=== PATIENT | female | born 1965 | race Caucasian/White ===

== ENCOUNTER → 2017-05-05 | Outpatient (CLI) | payer BC ==
--- NOTE | 2017-05-06 07:35 | MAMMOGRAPHY REPORT ---
BILATERAL DIGITAL SCREENING MAMMOGRAM WITH CAD: 05/05/2017 CLINICAL HISTORY: Patient presents for routine screening. S/P bilateral augmentation. TECHNIQUE: Bilateral CC and MLO views of the breasts with and without implant displacement views were obtained. Current study was also evaluated with a Computer Aided Detection (CAD) system. COMPARISON: Comparison is made to exams dated: 11/08/2015 mammogram, 10/15/2012 mammogram, and 04/13/20 11 mammogram. BREAST COMPOSITION: There are scattered areas of fibroglandular density in both breasts. FINDINGS: Bilateral subpectoral silicone implants are in place. No suspicious mass, architectural di stortion or cluster of suspicious microcalcifications is seen. IMPRESSION: ACR BI-RADS CATEGORY 1: NEGATIVE There is no mammographic evidence of malignancy. A 1 year screening mammogram is recommended. The pa tient will receive written notification of the results. Approximately 10% of breast cancers are not detected with mammography. A negative mammographic report should not delay biopsy if a clinically suggestive mass is present. Sloane Webb M.D. ay/:05/05/2017 16:16:51 Set Up Mold Technician: Douglas Arcos M, [facility] letter sent: Normal 1/2 BI-RADS Code: ACR BI-RADS Category 1: Negative
== END | disposition home or self-care (01) ==
LOC: C.MAMM 10:55
PROVIDERS: ATTEND Obstetrics & Gynecology
DX: Z12.31 Encounter for screening mammogram for malignant neoplasm of breast (principal); Z98.82 Breast implant status

== ENCOUNTER 2017-06-17 13:57 | Emergency (ER) | payer BC ==
[~2017-06-17] VITALS: Ht 172.7 cm; Wt 76.0 kg
[2017-06-17 14:01] VITALS: TEMP 36.4; Ht 172.7 cm; Wt 76.0 kg
[2017-06-17] MEDS ORDERED: FLUO20CA35 PO (14:37)
[2017-06-17] MEDS ORDERED: LORA-741 PO (14:37)
[2017-06-17 14:59] LABS: BASO % 0.7 %; BASO ABS # 0.06 K/uL (0-0.2); EOS % 0.8 %; EOS ABS # 0.07 K/uL (0-0.5); HEMATOCRIT 43.2 % (37-47); HEMOGLOBIN 14.6 g/dL (12.0-16.0); IG# 0.02 K/uL (0.00-0.02); LYMPH % 28.2 %; LYMPH ABS # 2.41 K/uL (1.2-3.4); MEAN CELL VOLUME 100.5 fL (80-100); MEAN CORPUSCULAR HGB CONC 33.8 g/dl (32-36); MEAN PLATELET VOLUME 9.4 fL (7.4-10.4); MONO % 4.9 %; MONO ABS # 0.42 K/uL (0.11-0.59); NEUT % 65.2 %; NEUT ABS # 5.58 K/uL (1.4-6.5); PLATELET COUNT 294 K/uL (130-400); RED CELL DISTRIBUTION WIDTH CV 13.6 % (11.5-14.5); WHITE BLOOD COUNT 8.56 K/uL (4.8-10.8)
[2017-06-17 15:22] LABS: ALBUMIN 4.3 gm/dl (3.4-5.0); ALT/SGPT 73 U/L (12-78); BLOOD UREA NITROGEN 7 mg/dl (7-18); CALCIUM 9.4 mg/dl (8.5-10.1); CARBON DIOXIDE 26 mmol/L (21-32); CREATININE 0.58 mg/dl (0.60-1.20); GLUCOSE 89 mg/dl (70-99); POTASSIUM 3.7 mmol/L (3.5-5.1); SODIUM 144 mmol/L (136-145)
[2017-06-17 15:33] LABS: ALKALINE PHOSPHATASE 97 U/L (45-117); AST/SGOT 65 U/L (15-37); TOTAL PROTEIN 8.5 gm/dl (6.4-8.2)
[2017-06-17] MEDS ORDERED: NICOTINE 21 MG/24 HR TDSY TD SCH (16:15)
[2017-06-17] MEDS ORDERED: LORAZEPAM 0.5 MG TAB SL STA (18:04)
[2017-06-17 20:19] VITALS: BP 114/76; PULSE 75; O2SAT 98
--- NOTE | 2017-06-17 20:40 | EMERGENCY ROOM VISIT NOTE ---
History Report prepared by Filiberto: Anum Herrmann Under the Supervision of: Dr. Juan M Pryor D.O. 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 Per , the patient was getting ready for work when she suddenly stopped getting ready and said she wanted to . The patient states that she felt like she could not do her job today. The patient states her co-workers have been questioning her. The states that the patient seemed like she was drunk and the patient admits that she drank Rum this morning. The patient states that she drinks about a fifth of a bottle of alcohol every day for at least a year. Per , the patient drinks a couple of shots before work and after work she will drink a bottle of alcohol, unless he hides it from her. The patient has a history of depression and anxiety. Per , the patient is normally bright and coherent. The patient feels like she hates herself and feels like she is a horrible person. The patient states that she wants to . She states that if she didn't have her children, then she would kill herself. The patient notes a history of pancreatitis. When asked if she wants to hurt herself, she states that she does not want to kill herself. 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 Review of Systems See HPI for pertinent positives & negatives. A total of 10 systems reviewed and were otherwise negative. Past Medical & Surgical Medical Problems: (1) Anxiety (2) Depression (3) Pancreatitis Family History No pertinent family history Social History Smoking Status: Current Every Day Smoker Smokeless Tobacco Use: No Alcohol Use: heavy (a fifth of ETOH every day) Marital Status: Housing Status: lives with significant other Occupation Status: employed Current/Historical Medications Scheduled Fluoxetine (Prozac), 60 MG PO QAM Scheduled PRN Lorazepam (Ativan), 0.5 MG PO BID PRN for Anxiety Allergies Coded Allergies: No Known Allergies (Unverified , 06/17/17) Physical Exam Vital Signs Date Time Temp Pulse Resp B/P (MAP) Pulse Ox O2 Delivery O2 Flow Rate FiO2 06/17/17 20:19 75 16 114/76 98 06/17/17 17:05 68 18 100/70 98 Room Air 06/17/17 14:01 36.4 94 16 153/88 96 Room Air Physical Exam GENERAL: Laying in bed, alert, disheveled-appearing, well nourished, no distress , non-toxic. Tearful and crying. EYE EXAM: conjunctiva injected. OROPHARYNX: no exudate, no erythema, lips, buccal mucosa, and tongue normal and mucous membranes are moist NECK: supple, no nuchal rigidity, no adenopathy, non-tender LUNGS: Clear to auscultation. Normal chest wall mechanics HEART: no murmurs, S1 normal and S2 normal ABDOMEN: abdomen soft, non-tender, normo-active bowel sounds, no masses, no rebound or guarding. BACK: Back is symmetrical on inspection and there is no deformity, no midline tenderness, no CVA tenderness. SKIN: no rashes and no bruising UPPER EXTREMITIES: upper extremities are grossly normal. LOWER EXTREMITIES: No pitting edema. NEURO EXAM: Awake, alert, following commands. Appears to be intoxicated. no focal deficits. Cranial nerves II-XII grossly intact, normal speech, no gross weakness of arms, no gross weakness of legs. PSYCH: Denies suicidal thoughts. Medical Decision & Procedures Laboratory Results 06/17/17 14:42 Red Blood Count 4.30, Mean Corpuscular Volume 100.5, Mean Corpuscular Hemoglobin 34.0, Mean Corpuscular Hemoglobin Concent 33.8, Mean Platelet Volume 9.4, Neutrophils (%) (Auto) 65.2, Lymphocytes (%) (Auto) 28.2, Monocytes (%) ( Auto) 4.9, Eosinophils (%) (Auto) 0.8, Basophils (%) (Auto) 0.7, Neutrophils # ( Auto) 5.58, Lymphocytes # (Auto) 2.41, Monocytes # (Auto) 0.42, Eosinophils # ( Auto) 0.07, Basophils # (Auto) 0.06 06/17/17 14:42 Test 06/17/17 00:00 06/17/17 14:42 Urine Color YELLOW Urine Appearance CLEAR (CLEAR) Urine pH 7.0 (4.5-7.5) Urine Specific [place] 1.011 (1.000-1.030) Urine Protein NEG (NEG) Urine Glucose (UA) NEG (NEG) Urine Ketones NEG (NEG) Urine Occult Blood TRACE (NEG) Urine Nitrite NEG (NEG) Urine Bilirubin NEG (NEG) Urine Urobilinogen NEG (NEG) Urine Leukocyte Esterase NEG (NEG) Urine WBC (Auto) 0 /hpf (0-5) Urine RBC (Auto) 0-4 /hpf (0-4) Urine Hyaline Casts (Auto) 0 /lpf (0-5) Urine Epithelial Cells (Auto) 5-10 /lpf (0-5) Urine Bacteria (Auto) NEG (NEG) Urine Test NEG (NEG) Urine Opiates Screen NEG (NEG) Urine Methadone, Qualitative NEG (NEG) Urine Barbiturates NEG (NEG) Urine Phencyclidine (PCP) Level NEG (NEG) Ur Amphetamine/Methamphetamine NEG (NEG) MDMA (Ecstasy) Screen NEG (NEG) Urine Benzodiazepines Screen NEG (NEG) Urine Cocaine Metabolite NEG (NEG) Urine Marijuana (THC) NEG (NEG) White Blood Count 8.56 K/uL (4.8-10.8) Red Blood Count 4.30 M/uL (4.2-5.4) Hemoglobin 14.6 g/dL (12.0-16.0) Hematocrit 43.2 % (37-47) Mean Corpuscular Volume 100.5 fL (80-100) Mean Corpuscular Hemoglobin 34.0 pg (25-34) Mean Corpuscular Hemoglobin Concent 33.8 g/dl (32-36) Platelet Count 294 K/uL (130-400) Mean Platelet Volume 9.4 fL (7.4-10.4) Neutrophils (%) (Auto) 65.2 % Lymphocytes (%) (Auto) 28.2 % Monocytes (%) (Auto) 4.9 % Eosinophils (%) (Auto) 0.8 % Basophils (%) (Auto) 0.7 % Neutrophils # (Auto) 5.58 K/uL (1.4-6.5) Lymphocytes # (Auto) 2.41 K/uL (1.2-3.4) Monocytes # (Auto) 0.42 K/uL (0.11-0.59) Eosinophils # (Auto) 0.07 K/uL (0-0.5) Basophils # (Auto) 0.06 K/uL (0-0.2) RDW Standard Deviation 50.0 fL (36.4-46.3) RDW Coefficient of Variation 13.6 % (11.5-14.5) Immature Granulocyte % (Auto) 0.2 % Immature Granulocyte # (Auto) 0.02 K/uL (0.00-0.02) Anion Gap 10.0 mmol/L (3-11) Est Creatinine Clear Calc Drug Dose 114.4 ml/min Estimated GFR () 122.8 Estimated GFR (Non- 106.0 BUN/Creatinine Ratio 12.0 (10-20) Calcium Level 9.4 mg/dl (8.5-10.1) Total Bilirubin 0.2 mg/dl (0.2-1) Direct Bilirubin < 0.1 mg/dl (0-0.2) Aspartate Amino Transf (AST/SGOT) 65 U/L (15-37) Alanine Aminotransferase (ALT/SGPT) 73 U/L (12-78) Alkaline Phosphatase 97 U/L (45-117) Total Protein 8.5 gm/dl (6.4-8.2) Albumin 4.3 gm/dl (3.4-5.0) Thyroid Stimulating Hormone (TSH) 1.080 uIu/ml (0.300-4.500) Ethyl Alcohol mg/dL 330.5 mg/dl (0-3) Laboratory results per my review. Medications Administered Medications (Trade) Dose Ordered Sig/Chang Route Start Time Stop Time Status Last Admin Dose Admin Nicotine (Nicoderm Cq 21MG Patch) 1 patch NOW TD 06/17/17 16:15 06/17/17 20:33 DC 06/17/17 16:24 1 PATCH Lorazepam (Ativan Tab) 0.5 mg NOW STAT SL 06/17/17 18:04 06/17/17 18:13 DC 06/17/17 18:17 0.5 MG ED Course ED COURSE: Vital signs were reviewed and showed hypertensive. The patients medical record was reviewed The above diagnostic studies were performed and reviewed. ED treatments and interventions as stated above. 1409: The patient was evaluated in room A6. A complete history and physical examination was performed. 1509: I spoke with Kayla Ivey, case management. We discussed the patient's case. 1549: I reassessed the patient at this time. She is resting. 161: Ordered Nicotine 1 patch TD 1715: I reassessed the patient at this time. She is resting. 1803: Ordered Ativan 0.5 SL 1944: I spoke with Katerina Michael, psychiatric case management. We discussed the patient's case. The patient would like to go home. 1947: I reassessed the patient at this time. She is awake, alert, and talking in full sentences. The patient does not appear to be intoxicated. 1999: The patient was evaluated and does not currently meet admission criteria. 2009: Upon reevaluation, I discussed my findings with the patient and she understands and agrees with the treatment plan. Based on the patients age, coexisting illnesses, exam and lab findings the decision to treat as an outpatient was made. The patient remained stable while under my care. The patient appeared well at the time of discharge. Medical Decision Differential diagnosis: Etiologies such as mood disorder, infection, hypoglycemia, electrolyte abnormalities, cardiac sources, intracerebral event, toxicologic, neurologic, as well as others were entertained. Patient is a 51-year-old female who presents to ER brought in by significant other for depression. He notes that she did not want to go to work today and was stating that she would rather . She feels bad because she is hurting people because she is drinking. She is not alcoholic. She drinks a fifth of a liquor per day. 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 Patient denies any homicidal or suicidal ideations. She notes she would not kill herself because of her children. CBC all BMP, LFTs, bilirubin and TSH is unremarkable. UA was negative. was negative. Alcohol was 3:30. She was slightly slurring her words. She rested in the ER for close to 6 hours. On multiple re- evaluations she is walking around the room without slurring her words. She does not appear to be intoxicated. She is able to hold full conversation. She denies any suicidal or homicidal ideations. She notes that she would not kill herself. She is evaluated by my psychiatric care transition mgr. They agree that there is no grounds to hold ER. /sniffing other feels comfortable taking her home. Patient was discharged to follow-up as an outpatient. She is willing to seek alcohol rehabilitation/helping. Discussed with Pt concerning signs and symptoms to watch out for. Pt was instructed to follow up with their PCP and discussed with the patient their option to return to the ED at anytime for persistent or worsening symptoms. The appropriate anticipatory guidance and out-patient management, including indications for return to the emergency department, were explained at length to the patient and understood. Medication Reconcilliation Current Medication List: was personally reviewed by me Blood Pressure Screening Patient's blood pressure: Elevated blood pressure Blood pressure disposition: Elevated BP felt to be situational Impression Primary Impression: Mood disorder Additional Impressions: Alcohol abuse Depression Scribe Attestation The scribe's documentation has been prepared under my direction and personally reviewed by me in its entirety. I confirm that the note above accurately reflects all work, treatment, procedures, and medical decision making performed by me. Departure Information Dispostion Home / Self-Care Referrals Riaz Mendez MD (PCP) Forms HOME CARE DOCUMENTATION FORM, IMPORTANT VISIT INFORMATION Patient Instructions Alcohol Abuse - [facility], Depression Help Tips, ED Depression, My [facility] Additional Instructions Please follow up with your primary care doctor in the next 24 hours. Please make sure you follow up with rehabilitation for your alcohol abuse/addiction. No driving for the next 12 hours as you're still intoxicated and your given beds as well as the ER. Any thoughts of self-harm or harming anyone else please return immediately to the ER. Problem Qualifiers Additional Impressions: Depression Depression Type: unspecified Qualified Codes: F32.9 - Major depressive disorder, single episode, unspecified
== END 2017-06-17 20:20 | disposition home or self-care (01) ==
LOC: C.EDB 13:59 → C.EDA 20:20
DX: F10.10 Alcohol abuse, uncomplicated (principal); F32.9 Major depressive disorder, single episode, unspecified; F17.200 Nicotine dependence, unspecified, uncomplicated

== ENCOUNTER → 2017-10-19 | Outpatient (CLI) | payer BC ==
[~2017-10-19] MED LIST: FLUO20CA35 PO; LORA-741 PO
== END | disposition home or self-care (01) ==
LOC: C.LAB1850 10:55
PROVIDERS: ATTEND Internal Medicine Pulmonary Disease
DX: L63.9 Alopecia areata, unspecified (principal); L50.1 Idiopathic urticaria

== ENCOUNTER 2020-09-01 11:42 | Observation (INO) ==
[2020-09-01] MEDS ORDERED: ALUMINUM/MAGNESIUM SUSP 30 ML UDC PO STA (11:58)
[2020-09-01] MEDS ORDERED: ASPIRIN CHEW 324 MG PO STA (11:58)
[2020-09-01] MEDS ORDERED: THIAMINE HCL 200 MG in SODIUM CHLORIDE 0.9% 50 ML IV STA (12:01)
[2020-09-01 12:10] LABS: Basophils # (auto) 0.03 K/uL (0-0.2); Basophils % (auto) 0.3 %; Eosinophils # (auto) 0.02 K/uL (0-0.5); Eosinophils % (auto) 0.2 %; Hematocrit (blood only) 47.5 % (37-47); Hemoglobin 15.6 g/dL (12.0-16.0); Immature Granulocytes # (auto) 0.02 K/uL (0.00-0.02); Immature Granulocytes % (auto) 0.2 %; Lymphocytes # (auto) 1.52 K/uL (1.2-3.4); Lymphocytes % (auto) 13.6 %; Mean Corpuscular Hemoglobin 32.6 pg (25-34); Mean Corpuscular Hgb Conc 32.8 g/dL (32-36); Mean Corpuscular Volume 99.2 fL (80-100); Mean Platelet Volume 10.1 fL (7.4-10.4); Monocytes # (auto) 0.82 K/uL (0.11-0.59); Monocytes % (auto) 7.4 %; Neutrophils # (auto) 8.73 K/uL (1.4-6.5); Neutrophils % (auto) 78.3 %; Platelet Count 313 K/uL (130-400); RDW Coefficient of Variation 15.1 % (11.5-14.5); RDW Standard Deviation 55.2 fL (36.4-46.3); Red Blood Count 4.79 M/uL (4.2-5.4); White Blood Count 11.14 K/uL (4.8-10.8)
[2020-09-01 12:24] LABS: Partial Thromboplastin Time 25.6 Seconds (21.0-31.0); Prothrombin Time 9.8 Seconds (9.0-12.0)
[2020-09-01 12:28] LABS: Alanine Aminotransferase 57 U/L (12-78); Albumin Level 4.6 gm/dl (3.4-5.0); Aspartate Aminotransferase 62 U/L (15-37); BUN Creatinine Ratio 21.1 (10-20); Blood Urea Nitrogen 19 mg/dl (7-18); Calcium 9.8 mg/dl (8.5-10.1); Carbon Dioxide 24 mmol/L (21-32); Chloride 104 mmol/L (98-107); Creatinine Clr Calc Pharmacy 76.5 ml/min; Est GFR (African American) 82.3; Glucose 118 mg/dl (70-99); Magnesium 1.7 mg/dl (1.8-2.4); Potassium 3.3 mmol/L (3.5-5.1); Sodium 137 mmol/L (136-145)
--- NOTE | 2020-09-01 12:31 | XRay Report ---
XR chest 1V portable CLINICAL HISTORY: weakness COMPARISON STUDY: 05/25/2019 FINDINGS: The cardiac and mediastinal contours are normal. There is no evidence of focal pulmonary co nsolidation. There is no evidence of failure. No pleural effusions are visualized.[ IMPRESSION: No active disease in the chest. ACT 112: Negative or not required by law. Electronically signed by: Duy Melton M.D. 09/01/2020 12:30 PM
[2020-09-01 12:38] LABS: Albumin Globulin Ratio 1.1 (0.9-2); Alkaline Phosphatase 107 U/L (45-117); Bilirubin,Total 0.7 mg/dl (0.2-1); Globulin 4.1 gm/dl (2.5-4.0); Total Protein 8.7 gm/dl (6.4-8.2); Troponin I < 0.015 ng/ml (0-0.045)
--- NOTE | 2020-09-01 12:48 | Emergency Department Note ---
Impression & Plan Chest pain, Atrial fibrillation with rapid ventricular response, Abnormal EKG, Hypomagnesemia ED Provider Note NAME: NEELIMA SULLIVAN AGE: 54 SEX: F : 1965 ARRIVES VIA: Ambulance INFORMANT: Patient, prehospital personnel ED PROVIDER(S): Gerardo Marsh DO CHIEF COMPLAINT: Chest pain HPI: The patient is a 54-year-old female who presented to the emergency department by ambulance for an evaluation of chest pain and palpitations. The patient states that she awoke this morning noticing chest pain and palpitations. She also states that she has been experiencing GERD and reflux over the course the last month. She denies having any lower extremity swelling at this time but did complain of pain in the right calf over the last few weeks. She denies having any fever or cough. She states the pain is been intermittent but this morning she awoke with palpitations and discomfort in her chest which was constant. She went to [facility] and had an EKG which showed rapid atrial fibrillation with significant ST segment abnormalities. 911 was called and the patient was assessed by the prehospital personnel. She was found again to have a very abnormal EKG. An IV was placed and the patient's rhythm broke to a sinus rhythm. She continues to had some discomfort in her chest. She was treated with aspirin prior to arrival. Upon arrival to the emergency department her pain and palpitations were significantly improved. The patient has not had similar symptoms in the past but she does have a history of chronic alcohol use. She is never had problems with withdrawal. ROS: See above HPI for pertinent positives & negatives. A total of 10 systems reviewed and were otherwise negative. PAST MEDICAL HISTORY: See Below PAST SURGICAL HISTORY: See Below FAMILY HISTORY: See Below SOCIAL HISTORY: See Below HOME MEDICATIONS: See Below ALLERGIES: See Below VITALS: See Below PHYSICAL EXAMINATION: GENERAL: The patient is awake and alert. The patient is somewhat anxious appearing. EYES: The conjunctivae are clear. The pupils are round and reactive. EARS, NOSE, MOUTH AND THROAT: The nose is without any evidence of any deformity. Mucous membranes are moist. Tongue is midline. NECK: The neck is nontender and supple. RESPIRATORY: Normal respiratory effort is noted there is no evidence of wheezing rhonchi or rales CARDIOVASCULAR: Regular rate and rhythm noted there no murmurs rubs or gallops normal S1 normal S2. GASTROINTESTINAL: The abdomen is soft. Abdomen is nontender. MUSCULOSKELETAL/EXTREMITIES: There is no evidence of gross deformity full range of motion is noted in the hips and shoulders. SKIN: There is no obvious evidence of any rash. There are no petechiae, pallor or cyanosis noted. NEUROLOGIC: Patient is awake alert and oriented x3 strength is symmetric patellar reflexes are 2+ bilaterally MEDICAL DECISION MAKING: The patient is a 54-year-old female who presented to the emergency department from [facility] for an evaluation of chest pain and palpitations. The patient was found to be in atrial fibrillation with RVR initially. A second EKG showed significant ST segment abnormalities with the RVR. I would suspect underlying ischemia which could be rate related however given the patient's age and comorbidities I would be concerned that she may require further inpatient evaluation such as echocardiogram. I discussed the patient's laboratory and radiographic studies with her. I also discussed her case with the on-call [facility] hospitalist. The patient was treated with IV fluids thiamine and IV magnesium in the emergency department. She was given aspirin prior to arrival. On final reevaluation the patient was pain-free and remains in sinus rhythm. Triage Nursing notes reviewed. Prior medical records reviewed Vital Signs: reviewed and remarkable for tachycardia and hypertension. Differential diagnosis: Cardiac ischemia, aortic dissection, pulmonary embolism, pneumothorax, pneumonia, pericarditis, myocarditis, esophageal rupture, GERD, cholecystitis, pancreatitis, musculoskeletal, as well as other pathologies. ER treatment provided: See below Diagnostics interpreted by me: ECG: EKG was obtained in the emergency department. My interpretation is normal sinus rhythm at 83 bpm. There is no ectopy. There is no acute ST segment abnormalities noted. This was compared to a tracing from May 242018. No significant changes were noted. An EKG which was obtained at [email or web address] was reviewed. My interpretation is atrial fibrillation at [address] segment depressions were noted. LVH was suggested by voltage criteria. An EKG was obtained by the prehospital personnel. My interpretation is atrial fibrillation at 196 bpm. There was no ectopy. Worsening ST segment depression was noted diffusely with ST segment elevation in the high lateral leads. A second prehospital EKG was obtained. This was after IV line placement and after the patient went to a sinus rhythm. My interpretation is sinus rhythm at 82 bpm. There was no ectopy. Resolution of the previously noted ST segment abnormalities was noted. Cardiac Monitoring: An order was placed for continuous cardiac monitoring. The monitor shows a rate of 98 bpm with sinus rhythm. Laboratory studies: As stated above and show below. Imaging studies: See below Consultation(s): [] Past Med/Surg History Medical History Alcohol abuse Alopecia areata Basal cell carcinoma of nose Bipolar disorder Colitis Depression with anxiety Hypercholesteremia Laryngopharyngeal reflux (LPR) Osteoarthritis Pancreatitis (~2011) Post traumatic stress disorder REM sleep behavior disorder Urticaria Surgical History History of augmentation of both breasts History of colonoscopy with polypectomy (~2010) History of esophagogastroduodenoscopy (EGD) (~2010) History of tooth extraction History of wisdom tooth extraction Status post Mohs surgery for basal cell carcinoma Family History Father Prostate cancer Brother Cancer lung Mother Family hx colonic polyps Other No family history of adverse response to anesthesia Social History Smoking Status: Never smoker Cigarettes Per Day: 10 a day; Second Hand Exposure: Yes (parents smoked); Hx Alcohol Use: Yes (was an alcoholic--quit 11/2018) Alcohol type: hard liquor Hx Substance Use: No Preferred Language: Turkish Communication Ability: Effective [employer] Required: No Beliefs That Will Affect Care: None marital status: Single marital status details: Current Living Situation: Alone 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 Feels Safe at Home: Yes Assistive Devices: Contacts and Glasses Allergies Allergies Allergy/AdvReac Type Severity Reaction Status Date / Time gluten Allergy Mild gas, Verified 09/01/20 13:45 bloating milk Allergy Mild gas, Verified 09/01/20 13:45 bloating sucrose Allergy Mild hives Verified 09/01/20 13:45 codeine AdvReac Mild Headache Verified 09/01/20 13:45 Home Meds Home Medications Medication Instructions Recorded Confirmed fluoxetine [Prozac] 60 mg PO QAM 04/11/18 09/01/20 valacyclovir [Valtrex] 500 mg PO DAILY PRN 04/11/18 09/01/20 disulfiram 250 mg tablet 250 mg PO QAM 03/21/19 09/01/20 B-complex with vitamin C 1 tab PO QAM 04/01/19 09/01/20 melatonin 10 mg capsule 10 mg PO HS PRN 04/01/19 09/01/20 omeprazole 20 mg capsule,delayed 40 mg PO BID PRN #1 cap 04/01/19 09/01/20 release bupropion HCl 100 mg PO QAM 04/21/19 09/01/20 pediatric multivitamin no.101 1 tab PO HS 04/21/19 09/01/20 [Kids' Gummy] polyethylene glycol 3350 [Miralax] 17 g PO DAILY PRN 04/21/19 09/01/20 clonazepam 0.5 mg PO HS 09/01/20 09/01/20 topiramate [Topamax] 25 mg PO BID 09/01/20 09/01/20 Results & Data (ED) Vital Signs Vital Signs - 24 hr 09/01/20 11:46 09/01/20 11:50 09/01/20 11:58 Temperature 36.8 C Temperature Source Oral Pulse Rate 86 Pulse Rate [Left] Respiratory Rate 18 Respiratory Effort / Characteristics Respiratory Depth Blood Pressure 146/102 H Blood Pressure [Right Arm] Blood Pressure Mean 116 Blood Pressure Mean [Right Arm] Blood Pressure Position [Right Arm] Pulse Oximetry 97 97 98 Oxygen Delivery Method Room Air Room Air Room Air Sepsis Recent Fever Within 48 Hours No Sepsis New/Unexplained Change in Mental Status No Sepsis Action Taken by Nursing No Action Required 09/01/20 13:09 Temperature Temperature Source Pulse Rate Pulse Rate [Left] 93 H Respiratory Rate 20 Respiratory Effort / Characteristics Non-Labored Spontaneous Respiratory Depth Normal Blood Pressure Blood Pressure [Right Arm] 150/83 H Blood Pressure Mean Blood Pressure Mean [Right Arm] 105 Blood Pressure Position [Right Arm] Lying Pulse Oximetry 100 Oxygen Delivery Method Room Air Sepsis Recent Fever Within 48 Hours Sepsis New/Unexplained Change in Mental Status Sepsis Action Taken by Group Home Medications Current Medication List: was personally reviewed by me Laboratory Data Attestation: I reviewed the patient's lab results. Result diagrams: 09/01/20 12:00 09/01/20 12:00 Lab Results 09/01/20 09/01/20 09/01/20 Range/Units 12:00 12:00 12:00 WBC 11.14 H (4.8-10.8) K/uL RBC 4.79 (4.2-5.4) M/uL Hgb 15.6 (12.0-16.0) g/dL Hct 47.5 H (37-47) % MCV 99.2 (80-100) fL MCH 32.6 (25-34) pg MCHC 32.8 (32-36) g/dL RDW Std Deviation 55.2 H (36.4-46.3) fL RDW Coeff of Yazmin 15.1 H (11.5-14.5) % Plt Count 313 (130-400) K/uL MPV 10.1 (7.4-10.4) fL Immature Gran % (Auto) 0.2 % Neut % (Auto) 78.3 % Lymph % (Auto) 13.6 % [place] % (Auto) 7.4 % Eos % (Auto) 0.2 % Baso % (Auto) 0.3 % Neut # (Auto) 8.73 H (1.4-6.5) K/uL Lymph # (Auto) 1.52 (1.2-3.4) K/uL [place] # (Auto) 0.82 H (0.11-0.59) K/uL Eos # (Auto) 0.02 (0-0.5) K/uL Baso # (Auto) 0.03 (0-0.2) K/uL Immature Gran # (Auto) 0.02 (0.00-0.02) K/uL PT 9.8 (9.0-12.0) Seconds INR 1.0 (0.9-1.1) APTT 25.6 (21.0-31.0) Seconds PTT Ratio 1.0 Sodium 137 (136-145) mmol/L Potassium 3.3 L (3.5-5.1) mmol/L Chloride 104 (98-107) mmol/L Carbon Dioxide 24 (21-32) mmol/L Anion Gap 8.0 (3-11) BUN 19 H (7-18) mg/dl Creatinine 0.91 (0.6-1.2) mg/dl Est Cr Clr Drug Dosing 76.5 ml/min Est GFR ( Amer) 82.3 Est GFR (Non-Af Amer) 71.0 BUN/Creatinine Ratio 21.1 H (10-20) Glucose 118 H (70-99) mg/dl Calcium 9.8 (8.5-10.1) mg/dl Magnesium 1.7 L (1.8-2.4) mg/dl Total Bilirubin 0.7 (0.2-1) mg/dl AST 62 H (15-37) U/L ALT 57 (12-78) U/L Alkaline Phosphatase 107 (45-117) U/L Troponin I < 0.015 (0-0.045) ng/ml Total Protein 8.7 H (6.4-8.2) gm/dl Albumin 4.6 (3.4-5.0) gm/dl Globulin 4.1 H (2.5-4.0) gm/dl Albumin/Globulin Ratio 1.1 (0.9-2) TSH 2.240 (0.300-4.500) uIu/ml Administered Medications Discontinued Medications Al Hydrox/Mg Hydrox/Simethicone (Aluminum/Magnesium Susp 30 Ml Udc) 30 ml PO NOW STA Stop: 09/01/20 11:59 Last Admin: 09/01/20 12:24 Dose: 30 ml Documented by: [id number] Aspirin (Aspirin Chew 324 Mg) 324 mg PO NOW STA Stop: 09/01/20 11:59 Last Admin: 09/01/20 12:30 Dose: Not Given Documented by: [id number] Thiamine HCl 200 mg/ Sodium (Chloride) 52 mls @ 208 mls/hr IV NOW STA Stop: 09/01/20 12:15 Last Infusion: 09/01/20 12:41 Dose: 0 mls/hr Documented by: [id number] Admin: 09/01/20 12:24 Dose: 208 mls/hr Documented by: [id number] Imaging Data Radiologist's Impression: Chest X-Ray 09/01/20 11:58 XR chest 1V portable CLINICAL HISTORY: weakness COMPARISON STUDY: 05/25/2019 FINDINGS: The cardiac and mediastinal contours are normal. There is no evidence of focal pulmonary consolidation. There is no evidence of failure. No pleural effusions are visualized.[ IMPRESSION: No active disease in the chest. ACT 112: Negative or not required by law. Electronically signed by: Duy Melton M.D. 09/01/2020 12:30 PM Venous Doppler Study 09/01/20 12:01 US venous doppler LE RT CLINICAL HISTORY: Right leg pain, left chest pain. COMPARISON STUDY: No previous studies for comparison. FINDINGS: Real-time and color flow Doppler imaging were performed. Flow was seen within the femoral, popliteal and calf veins with no intraluminal thrombus de monstrated. The saphenous vein is patent. IMPRESSION: No evidence of right lower extremity DVT. ACT 112: Negative or not required by law. Electronically signed by: Duy Melton M.D. 09/01/2020 1:05 PM Discharge Plan Visit Data Chief Complaint: Chest Pain Stated Complaint: CHEST PAIN ED Provider: Gerardo Marsh Discharge Problem: Chest pain, Atrial fibrillation with rapid ventricular response, Abnormal EKG, Hypomagnesemia Patient Disposition: Being Evaluated by Hospitalist Condition: Good Forms Stand Alone Forms: [employer] Prescriptions Prescriptions: No Action disulfiram [Antabuse] 250 mg tablet 250 mg PO QAM RF: 0 omeprazole 20 mg capsule,delayed release(DR/EC) 40 mg PO BID PRN (Reason: Acid Reflux) Qty: 1 RF: 0 melatonin 10 mg capsule 10 mg PO HS PRN (Reason: Sleep) RF: 0 B-complex with vitamin C [Super B Complex-Vitamin C] tablet 1 tab PO QAM RF: 0 fluoxetine [Prozac] 40 mg Capsule 60 mg PO QAM RF: 0 valacyclovir [Valtrex] 500 mg Tablet 500 mg PO DAILY PRN (Reason: Cold Sores) RF: 0 bupropion HCl 100 mg Tablet Sustained-Release 12 Hr 100 mg PO QAM RF: 0 polyethylene glycol 3350 [Miralax] 17 gram/dose Powder 17 g PO DAILY PRN (Reason: Constipation) RF: 0 Kids' Gummy Tablet,Chewable 1 tab PO HS RF: 0 topiramate [Topamax] 25 mg Capsule, Sprinkle 25 mg PO BID RF: 0 clonazepam 0.5 mg tablet 0.5 mg PO HS RF: 0 Referrals Referrals: Riaz Mendez [Primary Care Provider] - Discharge Problem: Chest pain Qualifiers: Chest pain type: unspecified Qualified Code(s): R07.9 - Chest pain, unspecified
--- NOTE | 2020-09-01 13:06 | Ultrasound Report ---
US venous doppler LE RT CLINICAL HISTORY: Right leg pain, left chest pain. COMPARISON STUDY: No previous studies for comparison. FINDINGS: Real-time and color flow Doppler imaging were performed. Flow was seen within the femoral, popliteal and calf veins with no intraluminal thrombus demonstrated. The saphenous vein is patent. IMPRESSION: No evidence of right lower extremity DVT. ACT 112: Negative or not required by law. Electronically signed by: Duy Melton M.D. 09/01/2020 1:05 PM
--- NOTE | 2020-09-01 13:30 | Electrocardiogram Report ---
Test Reason : Blood Pressure : / mmHG Vent. Rate : 079 BPM Atrial Rate : 079 BPM P-R Int : 134 ms QRS Dur : 090 ms QT Int : 378 ms P-R-T Axes : -13 -03 -13 degrees QTc Int : 433 ms Normal sinus rhythm Minimal voltage criteria for LVH, may be normal variant Limb lead rersal suspected Borderline ECG When compared with ECG of 24-MAY-2019 15:56, Limb lead reversal now present Otherwise no significant change Reconfirmed by Ranjan Wilhelm ([id number]) on 09/02/2020 1:23:16 PM Referred By: REFERRED SELF Confirmed By:Ranjan Wilhelm
[2020-09-01] MEDS ORDERED: MAGNESIUM SULFATE / D5W 1 GM/100 ML BAG IV STA (13:58)
[2020-09-01 14:10] LABS: Appearance Urine Clear (Clear); Bilirubin Urine Negative (Negative); Blood Urine Negative (Negative); Color Urine Yellow; Glucose Urine UA Negative (Negative); Ketones Urine 1+ (Negative); Leukocyte Esterase Urine Negative (Negative); Nitrite Urine Negative (Negative); Protein Urine Negative (Negative); Specific Gravity Urine 1.017 (1.000-1.030); Urobilinogen Urine Negative (Negative)
--- NOTE | 2020-09-01 14:17 | History & Physical Report ---
Date of Service September 01, 2020 Assessment & Plan (1) Atrial fibrillation with rapid ventricular response: Paroxysmal. Now back in sinus rhythm. Discussed option of discharge from the ER on metoprolol, however observation is reasonable given significant rate related ischemic changes on EKG and may be more inclined to start anticoagulation if she has repeated prolonged episodes overnight. Defer anticoagulation for now given low [id number] score (1) and short duration. Start metoprolol tartrate 25 mg p.o. twice daily TTE Consult cardiology (2) Chest pain: Appears to be rate related given resolution now in normal sinus rhythm Trend troponins to rule out ACS TTE in a.m. (3) Depression with anxiety: Fluoxetine 60 mg p.o. every morning Bupropion 100 mg p.o. every morning (4) Bipolar disorder: Topamax 25 mg p.o. twice daily (5) Alcohol abuse: Monitor for symptoms of withdrawal. Last alcohol yesterday over the course of the day 1 pint of vodka. Lorazepam 0.5 mg p.o. now, then at risk lorazepam dosing depending on [facility] Admission and Anticipated Discharge Date Admission Date: September 01, 2020 History of Present Illness Chief Complaint: Atrial fibrillation with rapid ventricular rate Primary Care Provider: Riaz Mendez Valentin Call is a 54-year-old female who presents to the ER from urgent care due to abnormal EKG, chest pain and palpitations. This morning the patient woke up with substernal chest pain and associated palpitations. Chest pain 8/10 at worst, currently 0/10, no radiation, associated shortness of breath but no diaphoresis. She has never had a similar feeling before although does note worsening reflux over the last month but this is an acid taste that is in the back of her mouth rather than any pain. She went to [facility] and EKG showed atrial fibrillation with rapid ventricular rate and precordial ST depressions. EMS were called and after an IV was placed she converted to normal sinus rhythm. She has been chest pain-free since being in normal sinus rhythm. She denies any claudication (right calf pain worse at rest), presyncope or syncope. Of note today is the burial for her mother who recently . The patient has alcohol use disorder and has been sober for the past year but relapsed recently after the of her mother. Yesterday she drank 1 pint of vodka. No history of alcohol withdrawal seizures. She feels somewhat shaky at the present time but is unsure whether this is due to nicotine craving or withdrawals. Cardiovascular risk factors: Hypertension, 1 pack cigarettes per day. In the ER she has been chest pain-free in normal sinus rhythm. Initial troponin negative. ST depressions have resolved while in normal sinus rhythm. She is referred to medicine for admission and ongoing management of chest pain, A. fib with RVR. Allergies Allergy/AdvReac Type Severity Reaction Status Date / Time gluten Allergy Mild gas, Verified 09/01/20 13:45 bloating milk Allergy Mild gas, Verified 09/01/20 13:45 bloating sucrose Allergy Mild hives Verified 09/01/20 13:45 codeine AdvReac Mild Headache Verified 09/01/20 13:45 Home Medications Medication Instructions Recorded Confirmed Type fluoxetine [Prozac] 60 mg PO QAM 04/11/18 09/01/20 History valacyclovir [Valtrex] 500 mg PO DAILY PRN 04/11/18 09/01/20 History disulfiram 250 mg tablet 250 mg PO QAM 03/21/19 09/01/20 History B-complex with vitamin C 1 tab PO QAM 04/01/19 09/01/20 History melatonin 10 mg capsule 10 mg PO HS PRN 04/01/19 09/01/20 History omeprazole 20 mg capsule,delayed 40 mg PO BID PRN #1 cap 04/01/19 09/01/20 History release bupropion HCl 100 mg PO QAM 04/21/19 09/01/20 History pediatric multivitamin no.101 1 tab PO HS 04/21/19 09/01/20 History [Kids' Gummy] polyethylene glycol 3350 [Miralax] 17 g PO DAILY PRN 04/21/19 09/01/20 History clonazepam 0.5 mg PO HS 09/01/20 09/01/20 History topiramate [Topamax] 25 mg PO BID 09/01/20 09/01/20 History Past Med/Surg History Medical History Alcohol abuse Alopecia areata Basal cell carcinoma of nose Bipolar disorder Colitis Depression with anxiety Hypercholesteremia Laryngopharyngeal reflux (LPR) Osteoarthritis Pancreatitis (~2011) Post traumatic stress disorder REM sleep behavior disorder Urticaria Surgical History History of augmentation of both breasts History of colonoscopy with polypectomy (~2010) History of esophagogastroduodenoscopy (EGD) (~2010) History of tooth extraction History of wisdom tooth extraction Status post Mohs surgery for basal cell carcinoma Family History Father Prostate cancer Brother Cancer lung Mother Family hx colonic polyps Other No family history of adverse response to anesthesia Social History Smoking Status: Current every day smoker Cigarettes Per Day: 10; Second Hand Exposure: No; Do You Dip or Chew Tobacco: No; Tobacco Cessation Education Requested by Patient: No Hx Alcohol Use: Yes Alcohol type: hard liquor Hx Substance Use: No Preferred Language: Maldivian Communication Ability: Effective Army Officer Required: No Beliefs That Will Affect Care: None marital status: Single marital status details: Current Living Situation: Alone 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 Feels Safe at Home: Yes Safety Concerns: Feels Safe At This Time Assistive Devices: Glasses Review of Systems Review of Systems: All systems reviewed & are unremarkable except as noted in HPI & below Physical Exam Constitutional: well developed and well nourished; no acute distress Eyes: + anicteric sclerae; normal pupil size ENMT: external ear and nose normal, oropharynx normal Respiratory: normal respiratory effort, lungs clear to auscultation Cardiovascular: RRR, no murmur, no edema Gastrointestinal (Abdomen): normal bowel sounds, soft, nontender, no hepatosplenomegaly Musculoskeletal: no cyanosis or clubbing, extremities motor strength 5/5 Skin: no rashes, warm and dry Neurologic: moves all extremities and awake; not confused Motor/Sensory: no tremor Psychiatric: A+Ox3, euthymic affect Results & Data Results & Data ([facility]) Vital Signs (Past 12 Hours) Vital Signs Temp Pulse Pulse Resp BP BP Pulse Ox 09/01/20 13:09 93 H 20 150/83 H 100 09/01/20 11:58 98 09/01/20 11:50 36.8 C 86 18 146/102 H 97 09/01/20 11:46 97 Diagnostic Findings XR chest 1V portable IMPRESSION: No active disease in the chest. US venous doppler LE RT IMPRESSION: No evidence of right lower extremity DVT. Medications Administered ER medications given: Aspirin 324 mg p.o. Maalox 30 mL Thiamine 200 mg IV Magnesium sulfate 1 g IV ECG Indication: chest pain Rate (beats per minute): 88 Rhythm: normal sinus Findings: no acute ischemic change Change: the following changes noted (Lead placement changes between EKGs in ER) Additional Comments: Multiple out of hospital and in hospital EKGs reviewed. EKG as above represents initial in the hospital EKG 10:?? AM narrow complex tachycardia with ST depression in inferior leads and nonspecific T wave abnormalities in inferior lateral leads. Consistent with a. fib RVR. 11:27 AM: Narrow complex tachycardia with marked precordial ST depression, rate 150, appears regular Code Status & VTE Plan Code Status Full VTE Prophylaxis Plan VTE Prophylaxis will be ordered: No Reason for no VTE drug order: Treatment not indicated Reason for no VTE mechanical prophylaxis: Treatment not indicated PG Care Time/CCT Total # of Minutes Spent Total Time Spent with Patient: Total time spent is greater than 50% in coordination of care (as documented) at patient's floor/unit and/or counseling patient: Coding Level of Care Code 04426 OBS Care - Level 3 Diagnoses Atrial fibrillation with rapid ventricular response I48.91 Chest pain R07.9 Chest pain type: unspecified Depression with anxiety F41.8 Bipolar disorder F31.9 Alcohol abuse F10.10 (1) Chest pain Chest pain type: unspecified Qualified Code(s): R07.9 - Chest pain, unspecified
[2020-09-01] MEDS ORDERED: METOPROLOL TARTRATE 25 MG TAB PO STA (14:45)
[2020-09-01 15:21] LABS: Influenza A virus by PCR Negative (Neg); Influenza B virus by PCR Negative (Neg); RSV by PCR Negative (Neg); SARS CoV2 RNA(COVID-19) InHosp NEGATIVE (Negative)
[2020-09-01] MEDS ORDERED: LORazepam 0.5 MG TAB PO STA (15:32)
[2020-09-01] MEDS ORDERED: LORazepam 1 MG TAB PO PRN (17:46)
[2020-09-01] MEDS ORDERED: POLYETHYLENE (MIRALAX) 17 GM PACK PO PRN ×2 (17:46)
[2020-09-01] MEDS ORDERED: MELATONIN 3 MG TAB PO PRN (17:46)
[2020-09-01] MEDS ORDERED: ACETAMINOPHEN 325 MG TAB PO PRN (17:46)
[2020-09-01] MEDS ORDERED: PANTOprazole 40 MG TAB PO PRN (17:46)
[2020-09-01] MEDS ORDERED: ONDANSETRON INJ 2 MG/ML 2 ML VIAL IV PRN (17:46)
[2020-09-01] MEDS ORDERED: METOPROLOL TARTRATE 1 MG/ML VIAL IV PRN (17:46)
[2020-09-01] MEDS: TOPIRAMATE 25 MG TAB PO SCH (20:41)
[2020-09-01] MEDS: METOPROLOL TARTRATE 25 MG TAB PO SCH (20:41)
[2020-09-01] MEDS: NICOTINE 7 MG/24 HR TDSY TD SCH (20:41)
[2020-09-01] MEDS ORDERED: POTASSIUM CHLORIDE CRTAB 20 MEQ TABCR PO ONE (21:00)
[2020-09-01] MEDS ORDERED: clonazePAM 0.5 MG TAB PO SCH (21:00)
[2020-09-01] MEDS ORDERED: MULTIVITAMIN CHEWABLE TAB PO SCH (21:00)
[2020-09-02 07:24] LABS: BUN Creatinine Ratio 22.2 (10-20); Blood Urea Nitrogen 17 mg/dl (7-18); Calcium 8.7 mg/dl (8.5-10.1); Carbon Dioxide 27 mmol/L (21-32); Chloride 110 mmol/L (98-107); Creatinine Clr Calc Pharmacy 83.3 ml/min; Est GFR (African American) 100.7; Est GFR (Non-African American) 86.9; Glucose 83 mg/dl (70-99); Potassium 4.4 mmol/L (3.5-5.1); Sodium 139 mmol/L (136-145); Troponin I < 0.015 ng/ml (0-0.045)
[2020-09-02] MEDS: TOPIRAMATE 25 MG TAB PO SCH (08:34)
[2020-09-02] MEDS: METOPROLOL TARTRATE 25 MG TAB PO SCH (08:34)
[2020-09-02] MEDS: NICOTINE 7 MG/24 HR TDSY TD SCH (08:35)
[2020-09-02] MEDS ORDERED: buPROPion SR 100 MG TABCR PO SCH (09:00)
[2020-09-02] MEDS ORDERED: VITAMIN B COMPLEX TAB PO SCH (09:00)
[2020-09-02] MEDS ORDERED: FLUoxetine HCL 20 MG CAP PO SCH (09:00)
[2020-09-02] MEDS ORDERED: B COMPLEX WITH VITAMIN C PO SCH (09:00)
[2020-09-02] MEDS ORDERED: ASCORBIC ACID 500 MG TAB PO SCH (09:00)
--- NOTE | 2020-09-02 11:15 | XCELERA ---
[id number]
--- NOTE | 2020-09-02 11:29 | Cardiology Consultation ---
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 As noted, original ECG not available on [facility], but images appear to show atrial fibrillation with rapid ventricular response (less likely SVT). Fortunately, the patient's dysrhythmia broke spontaneously and has not recurred on low-dose beta-go. Her electrolytes have normalized and she has had no further chest pain. We discussed at some length the pathophysiology, prognosis, and management of paroxysmal atrial fibrillation. Since she has a remediable etiology which can be corrected through alcohol abstinence (which she was willing to pursue), the likelihood of recurrence should be fairly low. Nonetheless, given the extreme high rate and concurrent chest discomfort, recommend discharging on her current low-dose beta-go. We discussed anticoagulation, with a [id number] score of 1 and low likelihood of recurrence did not immediately initiate anticoagulation, however will give her samples of apixaban as outpatient to have available should she have any recurrence of palpitations lasting greater than 48 hours. Instructed her on Instant Heart Rate mary use for monitoring her rhythm. Unclear whether her chest discomfort and ECG changes were in fact anginal due to extreme demand of high heart rate (which does not necessarily imply significant coronary disease), but no evidence of acute coronary syndrome (troponins negative and subsequent ECGs benign). She does not have major risk factors for occlusive disease, but prudent to proceed with stress study to further evaluate this. Both stress study and outpatient follow-up scheduled for September 02 at 12:30 PM. History of Present Illness Reason for Consultation: Narrow complex tachycardia Requesting Physician: Abiel Cheung MD Attending Physician: Thom Everett DO History of Present Illness 54-year-old generally healthy woman with no history of dysrhythmia admitted 09/01/2020 with palpitations and chest pain, ECG showed probable atrial fibrillation with rapid ventricular response (196 bpm). She has a vague cardiac history of being evaluated by outpatient dietitian in [place] 10 or 15 years ago for some heart "thickening" without specific findings, current echocardiogram does not show hypertrophic cardiomyopathy, LVH, or other obvious pathology. She does not have a history of prior dysrhythmia or of hypertension. Her mother recently and the patient began drinking large amounts of alcohol (after being abstinent), upon admission she was hypokalemic and hypomagnesemic. Her chest discomfort was somewhat sharp but rather severe and concurrent with her palpitations, it resolved promptly when her dysrhythmia spontaneously broke in the emergency department. Overnight, she has had no recurrent chest pain or dysrhythmia, she had no complaints this morning. Allergies Allergy/AdvReac Type Severity Reaction Status Date / Time gluten Allergy Mild gas, Verified 09/01/20 13:45 bloating milk Allergy Mild gas, Verified 09/01/20 13:45 bloating sucrose Allergy Mild hives Verified 09/01/20 13:45 codeine AdvReac Mild Headache Verified 09/01/20 13:45 Home Medications Medication Instructions Recorded Confirmed Type fluoxetine [Prozac] 60 mg PO QAM 04/11/18 09/01/20 History valacyclovir [Valtrex] 500 mg PO DAILY PRN 04/11/18 09/01/20 History disulfiram 250 mg tablet 250 mg PO QAM 03/21/19 09/01/20 History B-complex with vitamin C 1 tab PO QAM 04/01/19 09/01/20 History melatonin 10 mg capsule 10 mg PO HS PRN 04/01/19 09/01/20 History omeprazole 20 mg capsule,delayed 40 mg PO BID PRN #1 cap 04/01/19 09/01/20 Hi story release bupropion HCl 100 mg PO QAM 04/21/19 09/01/20 History pediatric multivitamin no.101 1 tab PO HS 04/21/19 09/01/20 History [Kids' Gummy] polyethylene glycol 3350 [Miralax] 17 g PO DAILY PRN 04/21/19 09/01/20 History clonazepam 0.5 mg PO HS 09/01/20 09/01/20 History topiramate [Topamax] 25 mg PO BID 09/01/20 09/01/20 History Patient History Medical History Alcohol abuse Alopecia areata Basal cell carcinoma of nose Bipolar disorder Colitis Depression with anxiety Hypercholesteremia Laryngopharyngeal reflux (LPR) Osteoarthritis Pancreatitis (~2011) Post traumatic stress disorder REM sleep behavior disorder Urticaria Surgical History History of augmentation of both breasts History of colonoscopy with polypectomy (~2010) History of esophagogastroduodenoscopy (EGD) (~2010) History of tooth extraction History of wisdom tooth extraction Status post Mohs surgery for basal cell carcinoma Family History Prostate cancer Father No family history of adverse response to anesthesia Family hx colonic polyps Mother Cancer Brother lung Social History Smoking Status: Current every day smoker Cigarettes Per Day: 10; Second Hand Exposure: No; Do You Dip or Chew Tobacco: No; Tobacco Cessation Education Requested by Patient: No Hx Alcohol Use: Yes Alcohol type: hard liquor Hx Substance Use: No Preferred Language: Kinyarwanda Communication Ability: Effective First Front Ventilator Required: No Beliefs That Will Affect Care: None marital status: Single marital status details: Current Living Situation: Alone 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 Afebrile. Normotensive. Pulse 72 bpm and regular without ectopy. Skin: no ecchymoses or generalized lesions. HEENT: unremarkable. Neck: no JVD or carotid bruits. Lungs: clear. Cardiac: regular rhythm, no murmur or gallop. Abdomen: benign. Extremities: no edema, peripheral pulses brisk. Neurologic: normal affect and conversation, nonfocal. Results & Data ([facility]) Vital Signs (Past 12 Hours) Vital Signs Temp Pulse Pulse Resp BP Pulse Ox 09/02/20 08:19 98.1 F 76 18 131/84 99 09/02/20 07:34 71 09/02/20 04:00 98.1 F 65 16 134/87 98 09/02/20 00:00 73 Laboratory Results WBC 11.14, normal hemoglobin and platelet count. Potassium 3.3, magnesium 1.7, creatinine 0.91 yesterday, repeat labs today with normal electrolytes and creatinine of 0.77. Troponin negative x3. Diagnostic Findings Initial ECGs were unavailable in [employer] [facility], however I was able to review a copy sent to my iPhone. When ECG showed narrow complex rapid ventricular rate (196 bpm) which appeared slightly irregular, most likely atrial fibrillation with rapid ventricular response. A second ECG also showed narrow complex rapid ventricular rate (171 bpm) but appeared fairly regular. Both of these ECGs had marked ST depression. Subsequent ECG showed sinus rhythm at 79 bpm with borderline voltage criteria for LVH, otherwise unremarkable (ST segments were normal). Another ECG yesterday afternoon showed sinus rhythm at 83 bpm and was completely unremarkable. Chest x-ray on admission was normal. Venous Doppler showed no evidence of right lower extremity DVT. PG Care Time/CCT Total # of Minutes Spent Total Time Spent with Patient: Total time spent is greater than 50% in coordination of care (as documented) at patient's floor/unit and/or counseling patient: Coding Level of Care Code 19468 Inpt Consult Level 4 Diagnoses Atrial fibrillation with rapid ventricular response I48.91 Hypomagnesemia E83.42 Hypokalemia E87.6 Alcohol abuse F10.10
--- NOTE | 2020-09-02 12:59 | Discharge Summary ---
Date of Service September 02, 2020 Admission HPI Per Admitting Provider Valentin Call is a 54-year-old female who presents to the ER from urgent care due to abnormal EKG, chest pain and palpitations. This morning the patient woke up with substernal chest pain and associated palpitations. Chest pain 8/10 at worst, currently 0/10, no radiation, associated shortness of breath but no diaphoresis. She has never had a similar feeling before although does note worsening reflux over the last month but this is an acid taste that is in the back of her mouth rather than any pain. She went to [facility] and EKG showed atrial fibrillation with rapid ventricular rate and precordial ST depressions. EMS were called and after an IV was placed she converted to normal sinus rhythm. She has been chest pain-free since being in normal sinus rhythm. She denies any claudication (right calf pain worse at rest), presyncope or syncope. Of note today is the burial for her mother who recently . The patient has alcohol use disorder and has been sober for the past year but relapsed recently after the of her mother. Yesterday she drank 1 pint of vodka. No history of alcohol withdrawal seizures. She feels somewhat shaky at the present time but is unsure whether this is due to nicotine craving or withdrawals. Cardiovascular risk factors: Hypertension, 1 pack cigarettes per day. In the ER she has been chest pain-free in normal sinus rhythm. Initial troponin negative. ST depressions have resolved while in normal sinus rhythm. She is referred to medicine for admission and ongoing management of chest pain, A. fib with RVR. Admission Exam Per Admitting Provider Constitutional: well developed and well nourished; no acute distress Eyes: + anicteric sclerae; normal pupil size ENMT: external ear and nose normal, oropharynx normal Respiratory: normal respiratory effort, lungs clear to auscultation Cardiovascular: RRR, no murmur, no edema Gastrointestinal (Abdomen): normal bowel sounds, soft, nontender, no hepatosplenomegaly Musculoskeletal: no cyanosis or clubbing, extremities motor strength 5/5 Skin: no rashes, warm and dry Neurologic: moves all extremities and awake; not confused Motor/Sensory: no tremor Psychiatric: A+Ox3, euthymic affect Principal Diagnosis Atrial fibrillation with RVR Ethanol abuse Discharge Exam GENERAL : No acute distress EYES: No icterus, gaze conjugate NOSE: No evidence of epistaxis MOUTH: No lesions or candidiasis NECK: Supple LUNGS: CTA B/L, no wheezes, rales or rhonchi HEART: Regular, rate controlled ABDOMEN: Soft, NT, ND, BS Present EXTREMITIES: No LE edema, pedal pulses intact NEURO: A&OX3 Discharge Data Allergies Allergy/AdvReac Type Severity Reaction Status Date / Time gluten Allergy Mild gas, Verified 09/05/20 10:20 bloating milk Allergy Mild gas, Verified 09/05/20 10:20 bloating sucrose Allergy Mild hives Verified 09/05/20 10:20 codeine AdvReac Mild Headache Verified 09/05/20 10:20 Consultations 09/01/20 13:58 ED Decision to Admit Stat 09/01/20 17:46 Consult Cardiology Routine Ordered Studies 09/01/20 12:01 US venous doppler LE RT Stat US venous doppler LE RT CLINICAL HISTORY: Right leg pain, left chest pain. COMPARISON STUDY: No previous studies for comparison. FINDINGS: Real-time and color flow Doppler imaging were performed. Flow was seen within the femoral, popliteal and calf veins with no intraluminal thrombus demonstrated. The saphenous vein is patent. IMPRESSION: No evidence of right lower extremity DVT. ACT 112: Negative or not required by law. Electronically signed by: Duy Melton M.D. 09/01/2020 1:05 PM Hospital Course (1) Alcohol abuse: Assessment & Plan: (1) Atrial fibrillation with rapid ventricular response: Most likely secondary to ethanol abuse Now back in sinus rhythm. Cardiology consulted We will plan on stress test and follow-up EKG as an outpatient Patient aware that this is probably instigated by ethanol abuse Discharge on metoprolol Outpatient management by cardiology (2) Chest pain: Resolved Most likely secondary to ethanol in atrial fibrillation resulting in ischemic demand No arrhythmias on telemetry Discharge and follow-up with cardiology as an outpatient (3) Depression with anxiety: Continue fluoxetine 60 mg p.o. every morning Continue bupropion 100 mg p.o. every morning (4) Bipolar disorder: Continue Topamax 25 mg p.o. twice daily Continue with outpatient therapy (5) Alcohol abuse: Monitored for symptoms of withdrawal with alcohol withdrawal severity scale. Last alcohol consumption was the day before admission with 1 pint of vodka. Sliding scale lorazepam as well as gabapentin was used for withdrawal symptoms Patient discharged home with plans for follow-up with cardiology next week Total Time Total Time Spent Total Time Spent (In Minutes): 35 Total Time Includes: Examination of the Patient, Discharge Planning, Medication Reconciliation and Communication With Other Providers Discharge Plan Discharge Items Patient Disposition: Home - Self-Care Reason For Visit: ATRIAL FIBRILLATION WITH RAPID VENTRICULAR RATE Condition on Discharge: Good Activity: Resume your previous activity Non-emergency contact: Primary Care Provider Call non-emergency contact if: you have any medication questions and your symptoms worsen Follow-up/Referrals: Riaz Mendez [Primary Care Provider] - Diet: Heart Healthy Addtl Attending Provider Instructions: Medications: - LOPRESSOR (METOPROLOL): 25mg twice a day, next dose due this evening, this helps control heart rate, control afib episodes Paroxysmal atrial fibrillation converted to sinus rhythm and you have remained in sinus rhythm will continue on Lopressor 25mg twice a day, no need for full anticoagulation at this time follow up with Dr. Wilhelm on for stress test, further discussion about afib management and anticoagulation stay well nourished, well hydrated avoid all alcohol as this can trigger atrial fibrillation episodes Pending Studies at Discharge: No Stand-Alone Forms: [employer], Smoking Cessation Medications and DC Order Prescriptions: New metoprolol tartrate 25 mg Tablet 25 mg PO BID 30 Days Qty: 60 RF: 3 nicotine [Nicoderm CQ] 14 mg/24 hr patch 24 hour 1 patch transdermal DAILY Qty: 7 RF: 0 Continued melatonin 10 mg capsule 10 mg PO HS PRN (Reason: Sleep) RF: 0 B-complex with vitamin C [Super B Complex-Vitamin C] tablet 1 tab PO QAM RF: 0 fluoxetine [Prozac] 40 mg Capsule 60 mg PO QAM RF: 0 valacyclovir [Valtrex] 500 mg Tablet 500 mg PO DAILY PRN (Reason: Cold Sores) RF: 0 bupropion HCl 100 mg Tablet Sustained-Release 12 Hr 100 mg PO QAM RF: 0 polyethylene glycol 3350 [Miralax] 17 gram/dose Powder 17 g PO DAILY PRN (Reason: Constipation) RF: 0 Kids' Gummy Tablet,Chewable 1 tab PO HS RF: 0 topiramate [Topamax] 25 mg Capsule, Sprinkle 25 mg PO BID RF: 0 clonazepam 0.5 mg tablet 0.5 mg PO HS RF: 0 No Action fluticasone propionate 50 mcg/actuation spray,suspension 2 spray intranasal DAILY Qty: 15.8 RF: 2 famotidine 20 mg tablet 20 mg PO QPM Qty: 30 RF: 5 valacyclovir 1 gram tablet 1,000 mg PO DAILY Qty: 30 RF: 4 amoxicillin-pot clavulanate [Augmentin] 875-125 mg tablet 1 tab PO Q12H Qty: 28 RF: 0 pantoprazole 40 mg tablet,delayed release (DR/EC) 40 mg PO DAILY Qty: 42 RF: 2 Discharge Orders: Discharge Order (Routine); Ordered 09/02/20 Ordered By: Thom Rivera/Other Patient Handouts: Addiction: Getting Help Admission Data Admit Date/Time: 09/01/20 14:42 Attending Provider: Thom Everett Admit Provider: Abiel Cheung Primary Care Provider: Riaz Mendez Other Providers: Ranjan Wilhelm Other Interventions: Discharge Summary Assessment (RN) Last Done: 09/02/20 12:31 Supervising Physician Co-Signing Physician Notes Patient seen and examined on the day of discharge. I agree with the discharge summary by Ronnie FOWLER. I have reviewed the chart including labs, imaging and plans for discharge. patient feeling better, no palpitations, HR is controlled, appreciate recommendations from Dr. Wilhelm - Atrial fibrillation with RVR: likely due to alcohol abuse, now resolved plans to follow up this week with Dr. Wilhelm, will get stress test continue to Lopressor 25mg BID will decide on anticoagulation with Dr. Wilhelm since she is low risk Coding Level of Care Code D/C Day Management >30 mins Diagnoses Alcohol abuse F10.10 Time Spent (min) 35
--- NOTE | 2020-09-02 13:22 | Electrocardiogram Report ---
Test Reason : Blood Pressure : / mmHG Vent. Rate : 083 BPM Atrial Rate : 083 BPM P-R Int : 138 ms QRS Dur : 094 ms QT Int : 390 ms P-R-T Axes : 064 060 062 degrees QTc Int : 458 ms Normal sinus rhythm Normal ECG When compared with ECG of 01-SEP-2020 11:46, Limb lead reversal corrected Otherwise no significant change Confirmed by Ranjan Wilhelm ([id number] on 09/02/2020 1:22:04 PM Referred By: REFERRED SELF Confirmed By:Ranjan Wilhelm
[2020-09-02] MEDS ORDERED: METOPROLOL TARTRATE 25 MG TAB PO SCH (21:00)
== END 2020-09-02 14:04 | disposition home or self-care (01) ==
LOC: ED 11:42 → 2N 11:42 → SUATTDRO 14:42 → 2N 16:07